=== PATIENT | female | born 1990 | race Caucasian/White ===

== ENCOUNTER 2019-10-28 16:14 | Inpatient (IN) | payer OTHER ==
[~2019-10-28] VITALS: Ht 162.6 cm; Wt 3.6 kg
[2019-11-29] MEDS ORDERED: PRENATAL TABLE1 EAC1 PO (01:28)
== END 2019-12-01 17:00 | disposition home or self-care (01) | DRG 788 ==
LOC: OB/GYN 11-26 13:00 → LDR 11-29 01:09 → OB/GYN 11-29 18:14 → LDR 11-29 18:14 → OB/GYN 11-29 18:14
PROVIDERS: ADMIT Obstetrics & Gynecology Maternal & Fetal Medicine
PROC: 3E033VJ Introduction of Other Hormone into Peripheral Vein, Percutaneous Approach (ICD-10-PCS; 2019-11-29)
PROC: 4A1HXCZ Monitoring of Products of Conception, Cardiac Rate, External Approach (ICD-10-PCS; 2019-11-29)
PROC: 10D00Z1 Extraction of Products of Conception, Low, Open Approach (ICD-10-PCS; principal; 2019-11-29 15:00)
DX: O82 Encounter for cesarean delivery without indication (principal); O62.0 Primary inadequate contractions; Z3A.39 39 weeks gestation of pregnancy; Z37.0 Single live birth

== ENCOUNTER 2019-11-25 15:10 | Outpatient (CLI) | payer OTHER | END 2019-11-25 15:58 | disposition home or self-care (01) | LOC: NST 15:10 | DX: Z34.83 Encounter for supervision of other normal pregnancy, third trimester (principal) ==